=== PATIENT | male | born 1975 | race Caucasian/White ===

== ENCOUNTER 2019-12-17 10:18 | Outpatient (CLI) | payer OTHER ==
--- NOTE | 2019-12-17 10:58 | ULT ---
ULTRASOUND ABDOMEN COMPLETE: DATE: 12/17/2019 HISTORY: 44-year-old male with right upper quadrant abdominal pain FINDINGS: Gallbladder: Normal wall thickness. No gallstones or sludge identified. No pericholecystic fluid. Liver: Normal parenchymal echogenicity. Bilateral kidneys: No hydronephrosis. Pancreas: Poorly visualized. Common duct caliber: 3 mm. Abdominal aorta: No aneurysm. Inferior vena cava: Unremarkable where visualized. Spleen: No splenomegaly. IMPRESSION: 1) no pathology identified. 2) pancreas poorly visualized.
== END 2019-12-17 10:19 | disposition home or self-care (01) ==
LOC: SCSULT 10:18
PROVIDERS: ATTEND Family Medicine
DX: R10.11 Right upper quadrant pain (principal); R74.8 Abnormal levels of other serum enzymes
CPT/HCPCS: 93975

== ENCOUNTER 2022-09-09 09:14 | Outpatient (CLI) | payer BC | END 2022-09-09 09:15 | disposition home or self-care (01) | LOC: MRI 09:14 | PROVIDERS: ATTEND Nurse Practitioner Family | DX: M51.16 Intervertebral disc disorders with radiculopathy, lumbar region (principal); Q05.7 Lumbar spina bifida without hydrocephalus | CPT/HCPCS: 72120; 72148 ==

== ENCOUNTER 2023-03-20 07:29 | Outpatient (CLI) | payer BC | END 2023-03-20 07:30 | disposition home or self-care (01) | LOC: SCSMRI 07:29 | PROVIDERS: ATTEND Anesthesiology Pain Medicine | DX: M54.6 Pain in thoracic spine (principal); G95.29 Other cord compression | CPT/HCPCS: 72146 ==